=== PATIENT | female | born 1975 | race Two or more races ===

== ENCOUNTER 2021-05-30 08:57 | Day surgery (SDC) | payer OTHER ==
[~2021-05-30] VITALS: Ht 185.4 cm; Wt 111.1 kg
[~2021-05-30 08:57] MED LIST: LOTREL 10-20 M1 EACH PO
== END 2021-05-30 16:08 | disposition home or self-care (01) ==
LOC: O/R 08:57 → CIR.AMB 08:57 → SURH 08:57 → EDSTATUS 09:45 → O/R 16:08 → CIR.AMB 16:08
PROVIDERS: ATTEND Colon & Rectal Surgery
DX: C20 Malignant neoplasm of rectum (principal); Z20.822 Contact with and (suspected) exposure to COVID-19

== ENCOUNTER 2022-06-28 06:23 | Day surgery (SDC) | payer OTHER | END 2022-06-28 13:30 | disposition home or self-care (01) | LOC: AMB-ENDOS 06:23 → CIR.AMB 14:15 → AMB-ENDOS 14:15 | PROVIDERS: ATTEND Colon & Rectal Surgery | DX: C20 Malignant neoplasm of rectum (principal); K64.8 Other hemorrhoids; Z88.0 Allergy status to penicillin; Z20.822 Contact with and (suspected) exposure to COVID-19 ==

== ENCOUNTER 2022-11-01 05:53 | Day surgery (SDC) | payer OTHER | END 2022-11-01 10:40 | disposition home or self-care (01) | LOC: AMB-ENDOS 05:53 | PROVIDERS: ATTEND Colon & Rectal Surgery | DX: C20 Malignant neoplasm of rectum (principal); K62.82 Dysplasia of anus; Z88.0 Allergy status to penicillin; K57.30 Diverticulosis of large intestine without perforation or abscess without bleeding; Z20.822 Contact with and (suspected) exposure to COVID-19 ==